=== PATIENT | male | born 1975 | race Caucasian/White ===

== ENCOUNTER 2016-11-06 11:52 | Emergency (ER) | payer OTHER ==
[~2016-11-06] VITALS: Ht 188 cm; Wt 93.6 kg
[2016-11-06] MEDS ORDERED: HYDROcodone/APAP 5/325 TABLET PO ONE (13:00)
[2016-11-06] MEDS ORDERED: HYDROcodone/APAP 5/325 TABLET ONE (13:07)
[2016-11-06 13:13] LABS: HEMATOCRIT 46.8 % (39.2-51.8); HEMOGLOBIN 15.9 g/dL (13.7-18.0); WHITE BLOOD COUNT 13.9 x10^3/uL (3.4-10)
[2016-11-06 13:59] LABS: BLOOD UREA NITROGEN 10 mg/dL (7-18)
[2016-11-06] MEDS ORDERED: ONDANSETRON 2MG/ML, 2ML ONE (14:11)
[2016-11-06] MEDS ORDERED: HYDROmorphone 1 MG/ML, 1ML ONE ×2 (14:12→15:24)
[2016-11-06] MEDS ORDERED: OMNIPAQUE 350 MG/ML, 100ML BOTTLE ONE (14:28)
[2016-11-06] MEDS ORDERED: ONDANSETRON 2MG/ML, 2ML IVPush ONE (14:30)
[2016-11-06] MEDS: HYDROmorphone 1 MG/ML, 1ML IVPush PRN ×2 (14:32→15:26)
[2016-11-06] MEDS ORDERED: TRAM50TA2 PO (14:34)
[2016-11-06] MEDS ORDERED: LIDOCAINE 1%, 20ML ONE (15:40)
[2016-11-06] MEDS ORDERED: L.E.T SOLUTION TP ONE ×2 (15:44→16:00)
[2016-11-06] MEDS ORDERED: LIDOCAINE 1%, 20ML SQ ONE (16:00)
[2016-11-06 16:29] VITALS: BP 110/60
== END 2016-11-06 17:37 | disposition home or self-care (01) ==
LOC: ED 13:20
DX: K61.1 Rectal abscess (principal); D72.829 Elevated white blood cell count, unspecified
CPT/HCPCS: 10060; 36415; 72193; 80048; 85025; 96374; 96375; 96376; 99285; J1170; J2405; Q9967

== ENCOUNTER 2016-11-08 08:24 | Emergency (ER) | payer OTHER ==
[~2016-11-08] VITALS: Ht 188 cm; Wt 94.5 kg
[~2016-11-08 08:24] MED LIST: TRAM50TA2 PO
[2016-11-08 08:27] VITALS: BP 131/90
[2016-11-08] MEDS ORDERED: LIDOCAINE 1%, 20ML SQ ONE (09:00)
[2016-11-08] MEDS ORDERED: LIDOCAINE 1%, 20ML ONE (09:03)
== END 2016-11-08 09:26 | disposition home or self-care (01) ==
LOC: ED 08:53
DX: K61.1 Rectal abscess (principal)
CPT/HCPCS: 46050

== ENCOUNTER → 2017-04-19 | Outpatient (CLI) | payer OTHER ==
[~2017-04-19] MED LIST changes: +OMNIPAQUE 350 MG/ML, 100ML BOTTLE ONE
== END ==
LOC: CFH 09:17
PROVIDERS: ATTEND Physician Assistant
DX: C64.2 Malignant neoplasm of left kidney, except renal pelvis (principal); K76.0 Fatty (change of) liver, not elsewhere classified
CPT/HCPCS: 71046; 74178; Q9967

== ENCOUNTER 2017-05-10 07:22 | Emergency (ER) | payer OTHER ==
[~2017-05-10] VITALS: Ht 188 cm; Wt 88.5 kg
[~2017-05-10 07:22] MED LIST changes: -OMNIPAQUE 350 MG/ML, 100ML BOTTLE ONE
[2017-05-10] MEDS ORDERED: LIDOCAINE 2%, 20ML SQ ONE (08:00)
[2017-05-10] MEDS ORDERED: LIDOCAINE-MPF 2% ,5ML ONE (08:09)
[2017-05-10 08:25] LABS: BASOPHILS # (AUTO) 0.03 x10^3/uL (0-0.1); BASOPHILS % (AUTO) 0 % (0-1); EOSINOPHILS # (AUTO) 0.16 x10^3/uL (0-0.4); EOSINOPHILS % (AUTO) 2 % (1-7); LYMPHOCYTES # (AUTO) 1.69 x10^3/uL (1-3.4); LYMPHOCYTES % (AUTO) 23 % (22-44); MD NO; MEAN CORPUSCULAR HEMOGLOBIN 32.1 pg (27.5-34.5); MEAN CORPUSCULAR HGB CONC 34.4 g/dL (33.2-36.2); MEAN CORPUSCULAR VOLUME 93.3 fL (81-97); MEAN PLATELET VOLUME 7.5 fL (7.4-10.4); MONOCYTES # (AUTO) 0.66 x10^3/uL (0.2-0.8); MONOCYTES % (AUTO) 9 % (2-9); NEUTROPHILS # (AUTO) 4.89 x10^3/uL (1.8-6.8); NEUTROPHILS % (AUTO) 66 % (42-75); PLATELET COUNT 239 x10^3/uL (130-400); RED BLOOD COUNT 4.81 x10^6/uL (4.38-5.82); RED CELL DISTRIBUTION WIDTH 13.7 % (9.4-14.8)
[2017-05-10] MEDS ORDERED: SULF1TAB24 PO (08:25)
[2017-05-10 08:31] LABS: ALBUMIN 3.5 g/dL (3.4-5.0); ANION GAP 7 mmol/L (5-15); CALCIUM 8.2 mg/dL (8.5-10.1); CHLORIDE 110 mmol/L (98-107); CREATININE 0.63 mg/dL (0.7-1.3); T4 (THYROXINE) 6.2 mcg/dL (4.5-12.1)
[2017-05-10 08:40] LABS: FREE T4 (FREE THYROXINE) 0.98 ng/dL (0.76-1.46); THYROID STIMULATING HORMONE 0.686 mIU/L (0.358-3.740)
[2017-05-10 09:00] VITALS: BP 135/83
== END 2017-05-10 09:02 | disposition home or self-care (01) ==
LOC: ED 08:03
DX: L02.411 Cutaneous abscess of right axilla (principal); E04.1 Nontoxic single thyroid nodule; I10 Essential (primary) hypertension; F17.200 Nicotine dependence, unspecified, uncomplicated; Z85.528 Personal history of other malignant neoplasm of kidney
CPT/HCPCS: 10060; 36415; 80048; 82040; 84436; 84439; 84443; 85025; 99284; J3490

== ENCOUNTER → 2017-05-19 | Outpatient (CLI) | payer OTHER ==
[~2017-05-19] MED LIST changes: +SULF1TAB24 PO
== END ==
LOC: CFH 06:47
PROVIDERS: ATTEND Internal Medicine
DX: E04.9 Nontoxic goiter, unspecified (principal)
CPT/HCPCS: 76536

== ENCOUNTER → 2017-08-02 | Outpatient (CLI) | payer OTHER ==
[~2017-08-02] MED LIST changes: +GADOBUTROL 10 MMOL/10 ML VIAL ONE
== END | disposition home or self-care (01) ==
LOC: CFH 11:54
PROVIDERS: ATTEND Internal Medicine Endocrinology, Diabetes & Metabolism
DX: N64.4 Mastodynia (principal); E88.9 Metabolic disorder, unspecified; R63.4 Abnormal weight loss; Z85.528 Personal history of other malignant neoplasm of kidney
CPT/HCPCS: 70553; 76641; 77066; A9585